=== PATIENT | female | born 1950 | race Caucasian/White ===

== ENCOUNTER 2017-09-14 12:32 | Observation (INO) | payer MEDICARE, OTHER ==
[2017-09-13 11:17] VITALS: BP 154/64
[2017-09-13 11:47] LABS: BASOPHILS # (AUTO) 0.03 x10^3/uL (0-0.1); BASOPHILS % (AUTO) 0 % (0-1); EOSINOPHILS # (AUTO) 0.15 x10^3/uL (0-0.4); EOSINOPHILS % (AUTO) 2 % (1-7); LYMPHOCYTES # (AUTO) 1.81 x10^3/uL (1-3.4); LYMPHOCYTES % (AUTO) 24 % (22-44); MD NO; MEAN CORPUSCULAR HEMOGLOBIN 28.8 pg (27.0-34.8); MEAN CORPUSCULAR HGB CONC 32.8 g/dL (32.4-35.8); MEAN PLATELET VOLUME 6.9 fL (7.4-10.4); MONOCYTES # (AUTO) 0.55 x10^3/uL (0.2-0.8); MONOCYTES % (AUTO) 7 % (2-9); NEUTROPHILS # (AUTO) 4.92 x10^3/uL (1.8-6.8); NEUTROPHILS % (AUTO) 66 % (42-75); PLATELET COUNT 342 x10^3/uL (130-400); RED BLOOD COUNT 4.01 x10^6/uL (3.82-5.3); RED CELL DISTRIBUTION WIDTH 16.1 % (9.6-15.2)
[2017-09-13 11:58] LABS: ANION GAP 6 mmol/L (5-15); CALCIUM 8.8 mg/dL (8.5-10.1); CHLORIDE 105 mmol/L (98-107); CREATININE 0.71 mg/dL (0.55-1.02)
[2017-09-13 11:59] LABS: INTERNATIONAL NORMALIZED RATIO 0.94 (0.93-1.1); PROTHROMBIN TIME 9.8 Seconds (9.6-11.5)
[~2017-09-14] VITALS: Ht 162.6 cm; Wt 124.0 kg
[~2017-09-14 12:32] MED LIST: ALBU90AE INH; AMOX-291 PO; ASPI325T17 PO; ATOR10TA9 PO; BUDE10.22 INH; CELE200C PO; DENO60DI IM; ESOM40CA PO; FURO40TA6 PO; GABA-826 PO; GUAI200T3 PO; HYDR200T72 PO; INDA1.25 PO; KRIL500C PO; LEVO125T5 PO; LOSA100T6 PO; METF500T4 PO; METH4TAB7 PO; MULT-26 PO; Oxygen NAS; PARO20TA4 PO; lidocaine patches TP
[2017-09-14] MEDS ORDERED: SODIUM CHLORIDE 0.9% 1,000 ML IV ONE (13:23)
[2017-09-14] MEDS ORDERED: DIPHENHYDRAMINE 50 MG/ML, 1ML IVPush ONE (13:30)
[2017-09-14] MEDS ORDERED: LIDOCAINE 2%, 20ML ONE (14:02)
[2017-09-14] MEDS ORDERED: MIDAZOLAM 1 MG/ML, 2ML ONE (14:02)
[2017-09-14] MEDS ORDERED: HEPARIN 1,000 UNITS/ML, 10ML ONE ×2 (14:02→15:35)
[2017-09-14] MEDS ORDERED: VERAPAMIL 2.5 MG/ML, 2ML ONE ×2 (14:02→15:34)
[2017-09-14] MEDS ORDERED: FENTANYL PF 100 MCG/2ML ONE ×2 (14:02→15:34)
[2017-09-14] MEDS ORDERED: DIPHENHYDRAMINE 50 MG/ML, 1ML ONE (14:08)
[2017-09-14] MEDS ORDERED: NITROGLYCERIN 5 MG/ML, 10ML ONE (15:34)
[2017-09-14] MEDS ORDERED: TICAGRELOR 90 MG TABLET ONE (15:34)
[2017-09-14] MEDS ORDERED: MIDAZOLAM 1 MG/ML, 5ML ONE (15:34)
[2017-09-14] MEDS ORDERED: BIVALIRUDIN 250 MG ONE (15:35)
[2017-09-14] MEDS ORDERED: ADENOSINE IV PRN (17:00)
[2017-09-14] MEDS ORDERED: SODIUM CHLORIDE 0.9% IV PRN (17:00)
[2017-09-14] MEDS: SODIUM CHLORIDE 0.9% 1,000 ML IV SCH (17:44)
[2017-09-14] MEDS ORDERED: ACETAMINOPHEN 325 MG TABLET PO PRN (20:30)
[2017-09-15] MEDS: SODIUM CHLORIDE 0.9% 1,000 ML IV SCH ×2 (01:13→10:21)
[2017-09-15 02:20] VITALS: BP 128/79
[2017-09-15 07:12] VITALS: BP 136/75
== END 2017-09-15 13:30 | disposition home or self-care (01) ==
LOC: CACL 12:32 → 5SO 17:29 → CACL 20:25 → 5SO 20:26 → DCLOUNGE 09-15 13:13
PROVIDERS: ADMIT Internal Medicine Cardiovascular Disease; ATTEND Internal Medicine Cardiovascular Disease
DX: I25.10 Atherosclerotic heart disease of native coronary artery without angina pectoris (principal); I10 Essential (primary) hypertension; E78.5 Hyperlipidemia, unspecified; E11.9 Type 2 diabetes mellitus without complications; E78.00 Pure hypercholesterolemia, unspecified; G47.30 Sleep apnea, unspecified
CPT/HCPCS: 36415; 80048; 85025; 85610; 93460; 96374; 99156; 99157; C1760; C1769; C1894; G0378; J1200; J1644; J2250; J3010; J3490; Q9967; J0583

== ENCOUNTER 2018-07-20 12:06 | Day surgery (SDC) | payer MEDICARE, OTHER ==
[~2018-07-20] VITALS: Ht 160 cm; Wt 118.0 kg
[~2018-07-20 12:06] MED LIST changes: +LOSA100T14 PO; -LOSA100T6 PO; +METF500T17 PO; -METF500T4 PO
[2018-07-20 13:27] VITALS: BP 142/64
[2018-07-20] MEDS ORDERED: DIPHENHYDRAMINE 50 MG/ML, 1ML IVPush ONE (13:30)
[2018-07-20] MEDS ORDERED: RIOC2.5T PO (13:54)
[2018-07-20] MEDS ORDERED: ERGO500017 PO (13:54)
[2018-07-20] MEDS ORDERED: OXYM15SP NS (13:54)
[2018-07-20] MEDS ORDERED: TORS20TA2 PO (13:54)
[2018-07-20] MEDS ORDERED: SPIR25TA5 PO (13:54)
[2018-07-20] MEDS ORDERED: HYDR200T72 PO (13:54)
[2018-07-20] MEDS ORDERED: CHOL2000 PO (13:54)
[2018-07-20] MEDS ORDERED: ASPI-496 PO (13:54)
[2018-07-20] MEDS ORDERED: ESOM40CA PO (13:54)
[2018-07-20] MEDS ORDERED: FENTANYL PF 100 MCG/2ML ONE (14:07)
[2018-07-20] MEDS ORDERED: VERAPAMIL 2.5 MG/ML, 2ML ONE (14:07)
[2018-07-20] MEDS ORDERED: MIDAZOLAM 1 MG/ML, 2ML ONE (14:07)
[2018-07-20] MEDS ORDERED: LIDOCAINE 1%, 20ML ONE (14:07)
== END 2018-07-20 16:00 | disposition home or self-care (01) ==
LOC: CACL 12:06
PROVIDERS: ATTEND Internal Medicine Cardiovascular Disease
DX: I27.20 Pulmonary hypertension, unspecified (principal); I10 Essential (primary) hypertension; E11.9 Type 2 diabetes mellitus without complications; D64.9 Anemia, unspecified; G47.30 Sleep apnea, unspecified; E78.2 Mixed hyperlipidemia; Z79.82 Long term (current) use of aspirin; Z88.1 Allergy status to other antibiotic agents; Z88.8 Allergy status to other drugs, medicaments and biological substances; Z87.39 Personal history of other diseases of the musculoskeletal system and connective tissue; Z79.84 Long term (current) use of oral hypoglycemic drugs
CPT/HCPCS: 36415; 82607; 93451; C1894; J3490; J2250; J3010

== ENCOUNTER → 2020-07-22 | Outpatient (CLI) | payer MEDICARE, OTHER ==
[~2020-07-22] MED LIST changes: +ASPI-496 PO; +CHOL2000 PO; +ERGO500017 PO; -GUAI200T3 PO; +GUAI200T37 PO; +OXYM15SP NS; +RIOC2.5T PO; +SPIR25TA5 PO; +TORS20TA2 PO
== END | disposition home or self-care (01) ==
LOC: CVU 13:27
PROVIDERS: ATTEND Internal Medicine Cardiovascular Disease
DX: I08.3 Combined rheumatic disorders of mitral, aortic and tricuspid valves (principal); I11.9 Hypertensive heart disease without heart failure; E11.9 Type 2 diabetes mellitus without complications; E78.5 Hyperlipidemia, unspecified
CPT/HCPCS: 93306